=== PATIENT | female | born 1960 | race Caucasian/White ===

== ENCOUNTER 2017-05-20 06:05 | Inpatient (IN) | payer MEDICAID ==
[2017-05-20] MEDS ORDERED: ASPIRIN 81 MG CHEW PO STA (06:22)
[2017-05-20] MEDS ORDERED: NITROGLYCERIN SL TABS 0.4 MG TAB SUBLINGUAL STA ×3 (06:22)
--- NOTE | 2017-05-20 06:25 | ED ---
General Adult HPI - General Source: patient, RN notes reviewed Mode of arrival: ambulatory Limitations: no limitations <Darrell Jeong - Last Filed: 05/20/17 07:00> <Liam Lisa - Last Filed: 05/20/17 10:23> - General Chief complaint: Chest Pain Stated complaint: Chest Pain Time Seen by Provider: 05/20/17 06:18 - History of Present Illness Initial comments: Patient is a pleasant 57-year-old female presenting to the emergency Department with complaints of chest discomfort. Onset was around midnight. Discomfort feels like pressure. Discomfort is lower chest/upper abdomen with radiation to the upper back. Patient did have similar symptoms a few weeks ago however just lasted a few minutes then resolved. No dyspnea. Patient has had some nausea vomiting. No diaphoresis. Patient had a sister that of heart attack with similar symptoms. (Darrell Jeong) - Related Data Home Medications Medication Instructions Recorded Confirmed ALPRAZolam [Xanax] 0.25 mg PO DAILY PRN 12/07/15 05/20/17 Bumetanide [Bumex] 1 mg PO DAILY 12/07/15 05/20/17 Letrozole [Femara] 2.5 mg PO DAILY 12/07/15 05/20/17 Metoprolol Succinate (ER) [Toprol 100 mg PO HS 12/07/15 05/20/17 Xl] Zolpidem [Ambien] 10 mg PO HS PRN 08/24/16 05/20/17 Fexofenadine HCl [Jaye Allergy] 180 mg PO DAILY 05/20/17 05/20/17 Allergies Allergy/AdvReac Type Severity Reaction Status Date / Time celecoxib [From Celebrex] Allergy SEVERE Verified 05/20/17 08:11 HEADACHE codeine Allergy Nausea & Verified 05/20/17 08:11 Vomiting, HEADACHE Review of Systems ROS Other: All systems not noted in ROS Statement are negative. Constitutional: Denies: fever Eyes: Denies: eye pain ENT: Denies: ear pain Respiratory: Denies: cough, dyspnea Cardiovascular: Reports: chest pain Endocrine: Denies: fatigue Gastrointestinal: Reports: nausea, vomiting Genitourinary: Denies: dysuria Musculoskeletal: Reports: back pain Skin: Denies: rash Neurological: Denies: weakness <Darrell Jeong - Last Filed: 05/20/17 07:00> ROS Other: All systems not noted in ROS Statement are negative. <DangfatumajoaquínLiam Pattie - Last Filed: 05/20/17 10:23> ROS Statement: Those systems with pertinent positive or pertinent negative responses have been documented in the HPI. Past Medical History Past Medical History: Cancer, Hypertension, Osteoarthritis (OA) Additional Past Medical History / Comment(s): breast ca, HYPOGLYCEMIA , History of Any Multi-Drug Resistant Organisms: None Reported Past Surgical History: Breast Surgery, Orthopedic Surgery, Tonsillectomy Additional Past Surgical History / Comment(s): rt mastectomy, knee rt leg TOTAL KNEE, RIGHT KNEE ARTHROSCOPIC X8. BREAST BIOPSY, LEFT KNEE ARTHROTOMY Past Anesthesia/Blood Transfusion Reactions: No Reported Reaction Past Psychological History: Anxiety Smoking Status: Never smoker Past Alcohol Use History: None Reported Past Drug Use History: None Reported - Past Family History Mother Family Medical History: Cancer Additional Family Medical History / Comment(s): breast cancer at age 50 <Darrell Jeong - Last Filed: 05/20/17 07:00> General Exam Limitations: no limitations General appearance: alert, in no apparent distress Head exam: Present: atraumatic Eye exam: Present: normal appearance, PERRL ENT exam: Present: normal oropharynx Neck exam: Present: normal inspection Respiratory exam: Present: normal lung sounds bilaterally. Absent: chest wall tenderness Cardiovascular Exam: Present: regular rate, normal rhythm Expanded Peripheral pulses: 2+: Radial (R), Radial (L), Dorsalis Pedis (R), Dorsalis Pedis (L) GI/Abdominal exam: Present: soft, tenderness (Mild epigastric tenderness), normal bowel sounds. Absent: distended, guarding, rebound, rigid, pulsatile mass Extremities exam: Present: normal inspection. Absent: pedal edema, calf tenderness Back exam: Present: tenderness (Patient states mild discomfort to the upper thoracic region) Neurological exam: Present: alert Psychiatric exam: Present: normal affect, normal mood Skin exam: Present: normal color <Darrell Jeong - Last Filed: 05/20/17 07:00> General appearance: alert, in no apparent distress Head exam: Present: atraumatic, normocephalic, normal inspection Eye exam: Present: normal appearance, PERRL, EOMI. Absent: scleral icterus, conjunctival injection, periorbital swelling ENT exam: Present: normal exam, mucous membranes moist Neck exam: Present: normal inspection. Absent: tenderness, meningismus, lymphadenopathy Respiratory exam: Present: normal lung sounds bilaterally. Absent: respiratory distress, wheezes, rales, rhonchi, stridor Cardiovascular Exam: Present: regular rate, normal rhythm, normal heart sounds. Absent: systolic murmur, diastolic murmur, rubs, gallop, clicks GI/Abdominal exam: Present: soft, normal bowel sounds. Absent: distended, tenderness, guarding, rebound, rigid Extremities exam: Present: normal inspection, full ROM, normal capillary refill. Absent: tenderness, pedal edema, joint swelling, calf tenderness Back exam: Present: normal inspection Neurological exam: Present: alert, oriented X3, CN II-XII intact Psychiatric exam: Present: normal affect, normal mood Skin exam: Present: warm, dry, intact, normal color. Absent: rash <Liam Lisa - Last Filed: 05/20/17 10:23> Course <Darrell Jeong - Last Filed: 05/20/17 07:00> <Liam Lisa - Last Filed: 05/20/17 10:23> Vital Signs 05/20/17 05/20/17 05/20/17 06:08 06:28 07:24 Temperature 97.1 F L Pulse Rate 78 74 67 Respiratory 18 18 18 Rate Blood Pressure 146/70 146/88 171/79 O2 Sat by Pulse 98 99 99 Oximetry 05/20/17 09:16 Temperature Pulse Rate 81 Respiratory 18 Rate Blood Pressure 165/77 O2 Sat by Pulse 99 Oximetry - Reevaluation(s) Reevaluation #1: 05/20/17 07:00 EKG #2 shows normal sinus rhythm 67. NV 194. QRS 96. QT 414. QTC 437. Normal axis. Normal QRS. No acute ST change. (Darrell Jeong) Reevaluation #2: 05/20/17 08:11 Patient with persistent nausea (Liam Lisa) Reevaluation #3: 05/20/17 10:23 Positive right upper quadrant pain (Liam Lisa) EKG Findings - EKG Comments: EKG Findings:: Sinus rhythm at 69. QRS 88. QT 470. QTc 503. Normal axis. Normal QRS. No acute ST change. Artifact is present. <Darrell Jeong - Last Filed: 05/20/17 07:00> Medical Decision Making <Darrell Jeong - Last Filed: 05/20/17 07:00> - Lab Data Result diagrams: 05/20/17 06:10 05/20/17 06:10 - Radiology Data Radiology results: report reviewed (Chest x-ray is negative, ultrasound is pending positive for cholelithiasis, cholecystitis), image reviewed <Liam Lisa - Last Filed: 05/20/17 10:23> - Medical Decision Making Phys ed female here for evaluation of her quadrant pain, gallbladder disease, cholelithiasis likely cystitis. Patient moves having severe pain with now with pain control antibiotics and better. Patient will be admitted for surgical consultation regarding gallbladder (Liam Lisa) - Lab Data Lab Results 05/20/17 05/20/17 05/20/17 Range/Units 06:10 06:10 06:10 WBC 10.9 H (3.8-10.6) k/uL RBC 4.83 (3.80-5.40) m/uL Hgb 14.0 (11.4-16.0) gm/dL Hct 41.2 (34.0-46.0) % MCV 85.3 (80.0-100.0) fL MCH 28.9 (25.0-35.0) pg MCHC 33.9 (31.0-37.0) g/dL RDW 14.8 (11.5-15.5) % Plt Count 393 (150-450) k/uL Neutrophils % 76 % Lymphocytes % 17 % Monocytes % 3 % Eosinophils % 2 % Basophils % 1 % Neutrophils # 8.3 H (1.3-7.7) k/uL Lymphocytes # 1.8 (1.0-4.8) k/uL Monocytes # 0.3 (0-1.0) k/uL Eosinophils # 0.2 (0-0.7) k/uL Basophils # 0.1 (0-0.2) k/uL PT (9.0-12.0) sec INR (<1.2) APTT (22.0-30.0) sec D-Dimer (<0.60) mg/L FEU Sodium 140 (137-145) mmol/L Potassium 4.1 (3.5-5.1) mmol/L Chloride 99 (98-107) mmol/L Carbon Dioxide 27 (22-30) mmol/L Anion Gap 14 mmol/L BUN 13 (7-17) mg/dL Creatinine 0.60 (0.52-1.04) mg/dL Est GFR (MDRD) Af Amer >60 (>60 ml/min/1.73 sqM) Est GFR (MDRD) Non-Af >60 (>60 ml/min/1.73 sqM) Glucose 143 H (74-99) mg/dL Calcium 10.1 (8.4-10.2) mg/dL Magnesium 1.9 (1.6-2.3) mg/dL Total Bilirubin 0.8 (0.2-1.3) mg/dL AST 28 (14-36) U/L ALT 49 (9-52) U/L Alkaline Phosphatase 63 (38-126) U/L Total Creatine Kinase 43 (30-135) U/L CK-MB (CK-2) 0.5 (0.0-2.4) ng/mL CK-MB (CK-2) Rel Index 1.2 Troponin I <0.012 (0.000-0.034) ng/mL Total Protein 6.6 (6.3-8.2) g/dL Albumin 4.2 (3.5-5.0) g/dL Lipase (23-300) U/L 05/20/17 05/20/17 Range/Units 06:10 06:10 WBC (3.8-10.6) k/uL RBC (3.80-5.40) m/uL Hgb (11.4-16.0) gm/dL Hct (34.0-46.0) % MCV (80.0-100.0) fL MCH (25.0-35.0) pg MCHC (31.0-37.0) g/dL RDW (11.5-15.5) % Plt Count (150-450) k/uL Neutrophils % % Lymphocytes % % Monocytes % % Eosinophils % % Basophils % % Neutrophils # (1.3-7.7) k/uL Lymphocytes # (1.0-4.8) k/uL Monocytes # (0-1.0) k/uL Eosinophils # (0-0.7) k/uL Basophils # (0-0.2) k/uL PT 10.0 (9.0-12.0) sec INR 1.0 (<1.2) APTT 23.6 (22.0-30.0) sec D-Dimer 0.31 (<0.60) mg/L FEU Sodium (137-145) mmol/L Potassium (3.5-5.1) mmol/L Chloride (98-107) mmol/L Carbon Dioxide (22-30) mmol/L Anion Gap mmol/L BUN (7-17) mg/dL Creatinine (0.52-1.04) mg/dL Est GFR (MDRD) Af Amer (>60 ml/min/1.73 sqM) Est GFR (MDRD) Non-Af (>60 ml/min/1.73 sqM) Glucose (74-99) mg/dL Calcium (8.4-10.2) mg/dL Magnesium (1.6-2.3) mg/dL Total Bilirubin (0.2-1.3) mg/dL AST (14-36) U/L ALT (9-52) U/L Alkaline Phosphatase (38-126) U/L Total Creatine Kinase (30-135) U/L CK-MB (CK-2) (0.0-2.4) ng/mL CK-MB (CK-2) Rel Index Troponin I (0.000-0.034) ng/mL Total Protein (6.3-8.2) g/dL Albumin (3.5-5.0) g/dL Lipase 137 (23-300) U/L Disposition <Darrell Jeong - Last Filed: 05/20/17 07:00> <Liam Lisa - Last Filed: 05/20/17 10:23> Clinical Impression: Acute cholecystitis Disposition: ADMITTED IP TO THIS HOSP Condition: Fair Referrals: Barney Cisse MD [Primary Care Provider] - 1-2 days
[2017-05-20] MEDS ORDERED: ONDANSETRON 4 MG/2 ML VIAL IVP STA ×2 (06:32→07:37)
[2017-05-20 06:47] LABS: Basophils # (A) 0.1 k/uL (0-0.2); Basophils % (A) 1 %; CH 29.4; CHCM 34.6; Eosinophils # (A) 0.2 k/uL (0-0.7); Eosinophils % (A) 2 %; HCT 41.2 % (34.0-46.0); HDW 2.77; Luc # (Auto) 0.18; Luc % (Auto) 2; Lymphocytes # (A) 1.8 k/uL (1.0-4.8); Lymphocytes % (A) 17 %; MCH 28.9 pg (25.0-35.0); MCHC 33.9 g/dL (31.0-37.0); MCV 85.3 fL (80.0-100.0); Mean Platelet Volume 7.5; Monocytes # (A) 0.3 k/uL (0-1.0); Monocytes % (A) 3 %; Neutrophils # (A) 8.3 k/uL (1.3-7.7); Neutrophils % (A) 76 %; RBC 4.83 m/uL (3.80-5.40); RDW 14.8 % (11.5-15.5); WBC 10.9 k/uL (3.8-10.6); WBC (Perox) 10.75
[2017-05-20 07:00] LABS: ALT 49 U/L (9-52); AST 28 U/L (14-36); Alkaline Phosphatase 63 U/L (38-126); Anion Gap 14 mmol/L; Blood Urea Nitrogen 13 mg/dL (7-17); Calcium 10.1 mg/dL (8.4-10.2); Carbon Dioxide 27 mmol/L (22-30); Chloride 99 mmol/L (98-107); Glucose 143 mg/dL (74-99); Magnesium 1.9 mg/dL (1.6-2.3); Non-African American GFR(MDRD) >60 (>60 ml/min/1.73 sqM); Potassium 4.1 mmol/L (3.5-5.1); Sodium 140 mmol/L (137-145); Total Bilirubin 0.8 mg/dL (0.2-1.3); Total Protein 6.6 g/dL (6.3-8.2)
[2017-05-20 07:06] LABS: Partial Thromboplastin Time 23.6 sec (22.0-30.0)
--- NOTE | 2017-05-20 07:17 | XR ---
EXAM: XR Chest, 2 Views CLINICAL HISTORY: Reason: Chest Pain TECHNIQUE: Frontal and lateral views of the chest. COMPARISON: 08/09/16 FINDINGS: Lungs: Low lung volume accentuate pulmonary markings. Pleural space: Unremarkable. No pneumothorax. Heart: Unremarkable. No cardiomegaly. Mediastinum: Unremarkable. Bones/joints: Mild thoracic spondylosis Tubes, lines and devices: Overlying chest leads obscure portion of the chest. IMPRESSION: Low lung volumes limit evaluation. No dense consolidation or effusion
[2017-05-20 07:31] LABS: Creatine Kinase 43 U/L (30-135)
[2017-05-20] MEDS ORDERED: MORPHINE SULFATE 4 MG/ML SYRINGE IVP STA ×2 (07:37→10:08)
[2017-05-20] MEDS ORDERED: FAMOTIDINE 20 MG/2 ML VIAL IV STA (07:37)
[2017-05-20 07:43] LABS: Creatine Kinase MB 0.5 ng/mL (0.0-2.4); Troponin I <0.012 ng/mL (0.000-0.034)
--- NOTE | 2017-05-20 08:48 | US ---
EXAMINATION TYPE: US gallbladder DATE OF EXAM: 05/20/2017 COMPARISON: NONE CLINICAL HISTORY: Pain. EXAM MEASUREMENTS: Liver Length: 17.1 cm Gallbladder Wall: 0.3 cm CBD: 0.5 cm Right Kidney: 10.3 x 3.7 x 5.3 cm Large body habitus Pancreas: prominent duct Liver: Increased attenuation, decreased visualization of vessels suggestive of fatty infiltrate, tawnya e probable focal fatty sparing adjacent to gallbladder Gallbladder: cholelithiasis, possible stones in the neck Evidence for sonographic Royal's sign: CBD: wnl Right Kidney: wnl Limited views of the pancreas are normal. The pancreatic duct is within normal limits for size. The liver is upper limits of normal in size but attenuating and likely fatty infiltrated without foca l fatty sparing near the gallbladder fossa. There are gallstones within the gallbladder. The gallbladder wall measures 3 mm. The distal common he patic duct measures 5 mm. The right kidney is normal. The intrahepatic IVC is unremarkable. IMPRESSION: 1. CHOLELITHIASIS. 2. PROBABLE FATTY INFILTRATION OF THE LIVER.
[2017-05-20] MEDS ORDERED: AMPICILLIN-SULBACTAM 3 GM in SODIUM CHLORIDE 0.9% 100 ML IVPB STA (08:58)
[2017-05-20] MEDS ORDERED: SODIUM CHLORIDE 0.9% 1,000 ML IV ONE (10:21)
[2017-05-20] MEDS ORDERED: MORPHINE SULFATE 4 MG/ML SYRINGE IVP PRN (10:22)
[2017-05-20] MEDS ORDERED: ONDANSETRON 4 MG/2 ML VIAL IVP PRN (10:22)
--- NOTE | 2017-05-20 12:13 | P.GSHP ---
History of Present Illness H&P Date: 05/20/17 Chief Complaint: RIght upper quadrant pain Patient is a very pleasant 57-year-old female who presents with sudden onset of severe right upper quadrant pain which made her uncomfortable and she was not optimal any physician that she laid down. The some associated nausea. This pain started after having a large spaghetti meal with ice cream. She's not had any history of fever chills jaundice regular is. She presented today and has been given pain medication which is helped with the pain. Otherwise the pain itself is bandlike in the right upper quadrant radiating to the back and shoulder. There is some associated nausea and vomiting. No acholic stools. She's had one similar episode of pain approximately 3 weeks ago. But this pain is unrelenting and continuous and severe. - Constitutional Constitutional: Reports anorexia, Denies fatigue, Denies fever, Denies lethargy - EENT Eyes: denies blurred vision Ears, nose, mouth and throat: Denies headache, Denies sore throat - Cardiovascular Comment: Is able to walk to 3 flights of stairs without getting short of breath no history of recent heart issues she is hypertensive Cardiovascular: Reports claudication, Denies decreased exercise tolerance, Denies dyspnea on exertion - Respiratory Respiratory: Denies cough, Denies dyspnea - Gastrointestinal Gastrointestinal: Reports as per HPI - Genitourinary (Female) Genitourinary: Denies dysuria, Denies hematuria - Musculoskeletal Musculoskeletal: Denies myalgias - Integumentary Integumentary: Denies pruritus, Denies rash - Neurological Neurological: Denies numbness, Denies weakness - Psychiatric Psychiatric: Denies anxiety, Denies depression - Endocrine Endocrine: Denies fatigue, Denies weight change - Hematologic/Lymphatic Hematologic/Lymphatic: Denies easy bleeding - Allergic/Immunologic Comment: ALLERGIC to shellfish Past Medical History Past Medical History: Cancer, Hypertension, Osteoarthritis (OA) Additional Past Medical History / Comment(s): breast ca, HYPOGLYCEMIA , History of Any Multi-Drug Resistant Organisms: None Reported Past Surgical History: Breast Surgery, Orthopedic Surgery, Tonsillectomy Additional Past Surgical History / Comment(s): rt mastectomy, knee rt leg TOTAL KNEE, RIGHT KNEE ARTHROSCOPIC X8. BREAST BIOPSY, LEFT KNEE ARTHROTOMY Past Anesthesia/Blood Transfusion Reactions: No Reported Reaction Additional Past Anesthesia/Blood Transfusion Reaction / Comment(s): NO BLOOD TRANSFUSIONS Past Psychological History: Anxiety Smoking Status: Never smoker Past Alcohol Use History: None Reported Past Drug Use History: None Reported - Past Family History Mother Family Medical History: Cancer Additional Family Medical History / Comment(s): breast cancer at age 50 Father Family Medical History: Myocardial Infarction (MS) Medications and Allergies Home Medications Medication Instructions Recorded Confirmed Type ALPRAZolam [Xanax] 0.25 mg PO DAILY PRN 12/07/15 05/20/17 History Bumetanide [Bumex] 1 mg PO DAILY 12/07/15 05/20/17 History Letrozole [Femara] 2.5 mg PO DAILY 12/07/15 05/20/17 History Metoprolol Succinate (ER) [Toprol 100 mg PO HS 12/07/15 05/20/17 History Xl] Zolpidem [Ambien] 10 mg PO HS PRN 08/24/16 05/20/17 History Fexofenadine HCl [Jaye Allergy] 180 mg PO DAILY 05/20/17 05/20/17 History Allergies Allergy/AdvReac Type Severity Reaction Status Date / Time celecoxib [From Celebrex] Allergy SEVERE Verified 05/20/17 08:11 HEADACHE codeine Allergy Nausea & Verified 05/20/17 08:11 Vomiting, HEADACHE Surgical - Exam Vital Signs Temp Pulse Resp BP Pulse Ox 97.1 F L 78 18 146/70 98 05/20/17 06:08 05/20/17 06:08 05/20/17 06:08 05/20/17 06:08 05/20/17 06:08 - General well developed, well nourished, no distress - Eyes PERRL, normal ocular movement, no pale, no icteric, no deviation - ENT normal pinna, normal nares - Respiratory normal expansion, normal respiratory effort - Cardiovascular Rhythm: regular - Abdomen Patient tender in the right upper quadrant she is not guarding at this time there is no rebound organomegaly. - Integumentary no rash, no growths - Neurologic normal coordination, normal sensation - Musculoskeletal normal gait Results - Labs 05/20/17 06:10 05/20/17 06:10 Abnormal Lab Results - Last 24 Hours (Table) 05/20/17 05/20/17 Range/Units 06:10 06:10 WBC 10.9 H (3.8-10.6) k/uL Neutrophils # 8.3 H (1.3-7.7) k/uL Glucose 143 H (74-99) mg/dL Diabetes panel 05/20/17 Range/Units 06:10 Sodium 140 (137-145) mmol/L Potassium 4.1 (3.5-5.1) mmol/L Chloride 99 (98-107) mmol/L Carbon Dioxide 27 (22-30) mmol/L BUN 13 (7-17) mg/dL Creatinine 0.60 (0.52-1.04) mg/dL Glucose 143 H (74-99) mg/dL Calcium 10.1 (8.4-10.2) mg/dL AST 28 (14-36) U/L ALT 49 (9-52) U/L Alkaline Phosphatase 63 (38-126) U/L Total Protein 6.6 (6.3-8.2) g/dL Albumin 4.2 (3.5-5.0) g/dL Calcium panel 05/20/17 Range/Units 06:10 Calcium 10.1 (8.4-10.2) mg/dL Albumin 4.2 (3.5-5.0) g/dL Pituitary panel 05/20/17 Range/Units 06:10 Sodium 140 (137-145) mmol/L Potassium 4.1 (3.5-5.1) mmol/L Chloride 99 (98-107) mmol/L Carbon Dioxide 27 (22-30) mmol/L BUN 13 (7-17) mg/dL Creatinine 0.60 (0.52-1.04) mg/dL Glucose 143 H (74-99) mg/dL Calcium 10.1 (8.4-10.2) mg/dL Adrenal panel 05/20/17 Range/Units 06:10 Sodium 140 (137-145) mmol/L Potassium 4.1 (3.5-5.1) mmol/L Chloride 99 (98-107) mmol/L Carbon Dioxide 27 (22-30) mmol/L BUN 13 (7-17) mg/dL Creatinine 0.60 (0.52-1.04) mg/dL Glucose 143 H (74-99) mg/dL Calcium 10.1 (8.4-10.2) mg/dL Total Bilirubin 0.8 (0.2-1.3) mg/dL AST 28 (14-36) U/L ALT 49 (9-52) U/L Alkaline Phosphatase 63 (38-126) U/L Total Protein 6.6 (6.3-8.2) g/dL Albumin 4.2 (3.5-5.0) g/dL - Imaging Additional studies: Plan was reviewed and shows cholelithiasis. Assessment and Plan (1) Acute cholecystitis Status: Acute Plan: Patient is a hypertensive obese 57-year-old lady who presents with right upper quadrant pain due to cholelithiasis. Her history is consistent with acute cholecystitis. I recommended laparoscopic cholecystectomy risks and benefits of the procedure were discussed and she understands and is willing to proceed.
[2017-05-20] MEDS ORDERED: LIDOCAINE 1% INJ 10MG/ML (20 ML MDV) ONE ×2 (13:59→17:02)
[2017-05-20] MEDS ORDERED: NEOSTIGMINE 1 MG/ML 10 ML VIAL ONE ×2 (13:59→17:02)
[2017-05-20] MEDS ORDERED: SUCCINYLCHOLINE CHLORIDE 100 MG/5 ML SYR IV ONE ×2 (13:59→17:02)
[2017-05-20] MEDS ORDERED: PROPOFOL 10 MG/ML 20 ML VIAL IV ONE ×2 (13:59→17:02)
[2017-05-20] MEDS ORDERED: HYDROmorphone (PF) 1 MG/ML ONE (13:59)
[2017-05-20] MEDS ORDERED: ROCURONIUM BROMIDE 10 MG/ML 10 ML VIAL IV ONE ×2 (13:59→17:02)
[2017-05-20] MEDS ORDERED: GLYCOPYRROLATE 0.2 MG/ML 2 ML VIAL ONE ×2 (13:59→17:02)
[2017-05-20] MEDS ORDERED: fentaNYL (PF) 50 MCG/ML 2 ML AMP ONE ×2 (13:59→17:02)
[2017-05-20] MEDS ORDERED: MIDAZOLAM 2 MG/2 ML VIAL ONE ×2 (13:59→17:02)
[2017-05-20] MEDS ORDERED: IV FLUID CONTINUATION 1,000 ML IV ONE ×2 (14:28)
[2017-05-20] MEDS ORDERED: ONDANSETRON 4 MG/2 ML VIAL IVP ONE (14:34)
[2017-05-20] MEDS ORDERED: DEXAMETHASONE SOD PHOS (MDV) 100 MG/10 ML VIAL IVP ONE (14:35)
[2017-05-20] MEDS ORDERED: HEPARIN SODIUM,PORCINE 5,000 UNIT/ML 1 ML VIAL SQ ONE (14:54)
[2017-05-20] MEDS: AMPICILLIN-SULBACTAM 3 GM in SODIUM CHLORIDE 0.9% 100 ML IVPB SCH ×2 (17:20→23:54)
[2017-05-20] MEDS ORDERED: LIDOCAINE 0.5%-EPI 1:200,000 50 ML VIAL SQ ONE (17:32)
[2017-05-20] MEDS: LACTATED RINGERS 1,000 ML IV ONE ×2 (18:17→23:54)
--- NOTE | 2017-05-20 18:20 | P.OP ---
Date of Procedure: 05/20/17 Preoperative Diagnosis: Acute cholecystitis Postoperative Diagnosis: Acute cholecystitis Procedure(s) Performed: laparoscopic cholecystectomy Implants: Anesthesia: ALEXYS Surgeon: Brittany Garcia Pathology: other Condition: stable Disposition: PACU Indications for Procedure: Operative Findings: Acutely inflamed gall bladder Description of Procedure: The patient is a 57-year-old female who presented with epigastric and upper abdominal pain which localized in the right upper quadrant was tender with guarding in the right upper quadrant elevated white count and an ultrasound suggested cholelithiasis. Clinical diagnosis of acute cholecystitis was made. The risks benefits and possible complications of the procedure were discussed in detail and informed consent was obtained. Patient was identified in the preop operating holding area questions were answered and she was taken back to the operating room where she was placed in the supine position. She was given general anesthesia with endotracheal intubation followed by the placement of an orogastric tube and a timeout was called the indication procedure ALLERGIES medications from her prophylaxis were all discussed. Abdomen is prepped and draped in the usual sterile surgical fashion supraumbilical region was infiltrated with quarter percent with local anesthesia and incision was made with 11 blade and Veress needle was introduced and abdomen was insufflated to 18 mmHg. Once that was done a 10 mm epigastric port and two 5 mm right upper quadrant ports were placed.the gallbladder was retracted cephalad and superiorly.The fundus was retracted so as to make the Calot's triangle more visible. There were inflammatory peritoneal adhesions and the gallbladder was distended. The adhesions were taken down with the help of blunt dissection and using some electrocautery, skeletonizing the cystic duct and the multiple branches of the cystic artery. Cystic duct was clipped proximally and distally followed by clipping of the branches of the cystic artery following which they were transected sharply with the help of the krysta. The gallbladder was then taken off the gallbladder fossa with the help of electrocautery and placed in an Endo Catch bag and removed through the 10 m port site after dilating the port site with a Katie. The port was replaced and the gallbladder fossa was inspected and hemostasis was secured with the help of electrocautery the abdomen was thoroughly irrigated and sucked dry. [place] were noted to be in the appropriate position at this time to take procedure was terminated. the 10 mm port was removed and the port site was closed with the help of a Chriss Nuñez using 0 Vicryl.The Gas was shut off and all the 5 mm ports were removed. The abdomen was thoroughly desufflated. The remaining local anesthesia was infiltrated into the incisions and the incisions were closed with the help of 4-0 Monocryl and dermabond. The patient was extubated and taken to recovery room in stable condition the orogastric tube was removed prior to extubation. There were no complications.
[2017-05-20] MEDS ORDERED: KETOROLAC 30 MG/ML 1 ML VIAL IVP ONE (18:35)
[2017-05-20] MEDS: HYDROcodone/APAP 5-325MG 1 EACH TAB PO PRN (21:33)
[2017-05-20] MEDS ORDERED: METOPROLOL SUCCINATE (ER) 100 MG TAB.ER.24H PO SCH (22:08)
[2017-05-20] MEDS ORDERED: ALPRAZolam 0.25 MG TAB PO PRN (22:10)
[2017-05-21 00:08] VITALS: PULSE 78
[2017-05-21] MEDS: HYDROcodone/APAP 5-325MG 1 EACH TAB PO PRN (07:49)
[2017-05-21] MEDS: AMPICILLIN-SULBACTAM 3 GM in SODIUM CHLORIDE 0.9% 100 ML IVPB SCH (08:02)
[2017-05-21 08:40] VITALS: BP 126/83; RESP 19; TEMP 98
[2017-05-21] MEDS ORDERED: ENOXAPARIN 40 MG/0.4 ML SYRINGE SQ SCH (09:00)
[2017-05-21] MEDS ORDERED: LETROZOLE 2.5 MG TAB PO SCH (09:00)
[2017-05-21] MEDS ORDERED: BUMETANIDE 1 MG TAB PO SCH (09:00)
--- NOTE | 2017-05-21 11:15 | P.DS ---
Providers Date of admission: 05/20/17 10:21 Expected date of discharge: 05/21/17 Attending physician: Barney Cisse Consults: 05/20/17 10:21 Consult Physician Routine Consulting Provider: Brittany Garcia Consult Reason/Comments: fern Do you want consulting provider notified?: Yes Primary care physician: Barney Cisse - Discharge Diagnosis(es) (1) Acute cholecystitis Current Visit: Yes Status: Acute Hospital Course: Patient underwent right upper quadrant mid middle of chest pain which was worked up to be acute cholecystitis. Patient underwent a laparoscopic cholecystectomy which was uneventful. Postoperative she is been doing well ablating well without any pain no fever no chills. She's been discharged home today to follow up in 4 days. Restrictions are been discussed. Pertinent Studies: Ultrasound of abdomen Procedures: Laparoscopic cholecystectomy Patient Condition at Discharge: Fair Plan - Discharge Summary New Discharge Prescriptions: New HYDROcodone/APAP 5-325MG [[place] 5-325] 1 tab PO Q4HR PRN #15 tab PRN Reason: Pain Magnesium Hydroxide [Milk of Magnesia] 10 ml PO Q24H PRN #600 ml PRN Reason: Constipation No Action Letrozole [Femara] 2.5 mg PO DAILY Bumetanide [Bumex] 1 mg PO DAILY ALPRAZolam [Xanax] 0.25 mg PO DAILY PRN PRN Reason: Anxiety Metoprolol Succinate (ER) [Toprol Xl] 100 mg PO HS Zolpidem [Ambien] 10 mg PO HS PRN PRN Reason: SLEEP Fexofenadine HCl [Jaye Allergy] 180 mg PO DAILY Discharge Medication List ALPRAZolam [Xanax] 0.25 mg PO DAILY PRN 12/07/15 [History] Bumetanide [Bumex] 1 mg PO DAILY 12/07/15 [History] Letrozole [Femara] 2.5 mg PO DAILY 12/07/15 [History] Metoprolol Succinate (ER) [Toprol Xl] 100 mg PO HS 12/07/15 [History] Zolpidem [Ambien] 10 mg PO HS PRN 08/24/16 [History] Fexofenadine HCl [Jaye Allergy] 180 mg PO DAILY 05/20/17 [History] HYDROcodone/APAP 5-325MG [[place] 5-325] 1 tab PO Q4HR PRN #15 tab 05/21/17 [Rx] Magnesium Hydroxide [Milk of Magnesia] 10 ml PO Q24H PRN #600 ml 05/21/17 [Rx] Follow up Appointment(s)/Referral(s): Barney Cisse MD [Primary Care Provider] - 1-2 days Brittany Garcia MD [STAFF PHYSICIAN] - 05/25/17 9:30 am Activity/Diet/Wound Care/Special Instructions: Regular diet AMbulate as tolerated Use incentive spirometer as directed No driving on pain medications or when having pain May shower in 24 hours No heavy liftin more than 20 lbs for 6 weeks Discharge Disposition: HOME SELF-CARE
--- NOTE | 2017-05-22 09:36 | HP ---
DATE OF ADMISSION: 05/21/17 HISTORY AND PHYSICAL EXAMINATION/DISCHARGE SUMMARY CHIEF COMPLAINT: Abdominal pain. HISTORY OF PRESENT ILLNESS: This 57-year-old woman with past medical history of multiple medical problems being followed by Dr. Cisse in the outpatient setting , was admitted with epigastric and upper abdominal pain. The patient underwent laparoscopic cholecystectomy for acute cholecystitis by Dr. Garcia. The patient being closely monitored. There is no history of fever, rigors or chills. No history of headache, loss of consciousness or seizures. Occasional cough is reported. Past medical history of hypertension, DJD, history of breast cancer, breast surgery. Medications prior to admission are: Home medications are reviewed and include : 1. Jaye 180 mg po daily. 2. Ambien 10 mg prn. 3. Toprol XL 100 mg q.h.s. 4. Femara 2.5 daily. 5. Bumex 1 mg daily. 6. Xanax prn 7. Milk of magnesia. ALLERGIES: CELEBREX. CODEINE. FAMILY HISTORY: History of breast cancer in the family. SOCIAL HISTORY: No history of smoking. Occasional alcohol intake. REVIEW OF SYSTEMS: HEENT: No diminished vision. No diminished hearing. Cardiovascular system: No angina or palpitations. Respiratory: No cough, hemoptysis. GI: As mentioned earlier. : No dysuria. Nervous system: No numbness, weakness. Allergy/Immunology: No asthma or hayfever. Musculoskeletal : As mentioned earlier. Hematology/oncology: No history of anemia. Endocrine. No history of diabetes mellitus or hypothyroidism. Constitutional: As mentioned earlier. Dermatology: Negative. Rheumatology: Negative. Psychiatry: As mentioned earlier. PHYSICAL EXAMINATION: The patient is alert and oriented times three. Pulse 78. Blood pressure 138/77. Respiratory rate 18, temperature 97.4 degrees. Pulse ox 97% on 2 L. HEENT: Conjunctivae normal. NECK: No JVD. Cardiovascular: S1, S2 muffled. Respiratory: Breath sounds diminished at the bases. No rhonchi and no crackles. Abdomen is soft. Status post surgery. No mass palpable. No guarding. No rigidity. No mass palpable. No guarding. No rigidity. Legs: No edema. No swelling. Nervous system: Higher functions as mentioned earlier. Moves all four limbs. No focal deficits. Lymphatics: No lymph nodes palpable in the neck, axillae or groin. SKIN: No ulcer, rash or bleeding. LABS: WBC 10.9. ASSESSMENT: 1. Acute cholecystitis status post laparoscopic cholecystectomy. 2. Hypertension. 3. History of degenerative joint disease. 4. History of breast cancer. RECOMMENDATIONS AND DISCUSSION: In this 57 -year-old woman who presented after surgery, at this time, the patient improved significantly. At this time, I recommend continue incentive spirometry, the patient is stable. Resume the home medications. Follow-up with Dr. Cisse in the outpatient setting. DISCHARGE ADVICE AND MEDICATIONS: 1. Xanax 0.125 mg daily prn. 2. Bumex 1 mg po daily. 3. Jaye 180 mg po daily. 4. Forgan 5 mg q4h prn. 5. Femara 2.5 mg po daily. 6. Milk of Magnesia prn. 7. Metoprolol 100 mg q.h.s. 8. Ambien 10 mg q.h.s. prn MTDD
== END 2017-05-21 13:42 | disposition home or self-care (01) | DRG 419 ==
LOC: EC 06:05 → 6PED 10:21
PROVIDERS: ADMIT Family Medicine; ATTEND Family Medicine
PROC: 0FT44ZZ Resection of Gallbladder, Percutaneous Endoscopic Approach (ICD-10-PCS; principal; 2017-05-20 10:45)
DX: K80.00 Calculus of gallbladder with acute cholecystitis without obstruction (principal); I10 Essential (primary) hypertension; N73.6 Female pelvic peritoneal adhesions (postinfective); D72.829 Elevated white blood cell count, unspecified; E66.9 Obesity, unspecified; R05 Cough; M19.90 Unspecified osteoarthritis, unspecified site; F41.9 Anxiety disorder, unspecified; Z85.3 Personal history of malignant neoplasm of breast; Z90.11 Acquired absence of right breast and nipple; Z96.651 Presence of right artificial knee joint; Z86.39 Personal history of other endocrine, nutritional and metabolic disease; Z82.49 Family history of ischemic heart disease and other diseases of the circulatory system; Z80.3 Family history of malignant neoplasm of breast; Z88.6 Allergy status to analgesic agent; Z88.5 Allergy status to narcotic agent; Z79.811 Long term (current) use of aromatase inhibitors; Z79.899 Other long term (current) drug therapy
CPT/HCPCS: 36415; 71020; 76705; 80053; 82550; 82553; 83690; 83735; 84484; 85025; 85379; 85610; 85730; 88304; 93005; 96365; 96375; 96376; 99285

== ENCOUNTER 2017-12-22 22:08 | Emergency (ER) | payer MEDICAID ==
[2017-12-22 22:14] VITALS: BP 185/92; PULSE 99; RESP 18; TEMP 98
[2017-12-22] MEDS ORDERED: DIPH,PERTUS(ACELL)TETVAC-LF 0.5 ML VIAL IM ONE (22:28)
[2017-12-22] MEDS ORDERED: AMOXIC-POT CLAV 875MG STARTER 2 EACH TABLET PO STA (22:31)
--- NOTE | 2017-12-22 22:32 | ED ---
General Adult HPI - General Chief complaint: Animal Bite Stated complaint: Cat bite Time Seen by Provider: 12/22/17 22:17 Source: patient, RN notes reviewed Mode of arrival: ambulatory Limitations: no limitations - History of Present Illness Initial comments: Patient 57-year-old female who presents emergency room today with chief complaint of a cat Bite to the left palm. Patient states that her Was falling and she was trying to scratch his back and he turned around and bit her in the left. She has 2 puncture wounds to the hyperthenar eminence. She states she is unsure of her tetanus status. She denies any other complaints or symptoms. States she has full range of motion. Patient denies any recent fever, chills, shortness of breath, chest pain, abdominal pain, nausea or vomiting, headaches or visual changes, or any other complaints. - Related Data Home Medications Medication Instructions Recorded Confirmed ALPRAZolam [Xanax] 0.25 mg PO DAILY PRN 12/07/15 05/20/17 Bumetanide [Bumex] 1 mg PO DAILY 12/07/15 05/20/17 Letrozole [Femara] 2.5 mg PO DAILY 12/07/15 05/20/17 Metoprolol Succinate (ER) [Toprol 100 mg PO HS 12/07/15 05/20/17 Xl] Zolpidem [Ambien] 10 mg PO HS PRN 08/24/16 05/20/17 Fexofenadine HCl [Jaye Allergy] 180 mg PO DAILY 05/20/17 05/20/17 Previous Rx's Medication Instructions Recorded HYDROcodone/APAP 5-325MG [[place] 1 tab PO Q4HR PRN #15 tab 05/21/17 5-325] Magnesium Hydroxide [Milk of 10 ml PO Q24H PRN #600 ml 05/21/17 Magnesia] Amoxicillin/Potassium Clav 1 each PO Q12HR #20 tab 12/22/17 [Augmentin 875-125 Tablet] Allergies Allergy/AdvReac Type Severity Reaction Status Date / Time celecoxib [From Celebrex] Allergy SEVERE Verified 12/22/17 22:14 HEADACHE codeine Allergy Nausea & Verified 12/22/17 22:14 Vomiting, HEADACHE Review of Systems ROS Statement: Those systems with pertinent positive or pertinent negative responses have been documented in the HPI. ROS Other: All systems not noted in ROS Statement are negative. Past Medical History Past Medical History: Cancer, Hypertension, Osteoarthritis (OA) Additional Past Medical History / Comment(s): breast ca, HYPOGLYCEMIA , History of Any Multi-Drug Resistant Organisms: None Reported Past Surgical History: Breast Surgery, Cholecystectomy, Orthopedic Surgery, Tonsillectomy Additional Past Surgical History / Comment(s): rt mastectomy, knee rt leg TOTAL KNEE, RIGHT KNEE ARTHROSCOPIC X8. BREAST BIOPSY, LEFT KNEE ARTHROTOMY Past Anesthesia/Blood Transfusion Reactions: No Reported Reaction Additional Past Anesthesia/Blood Transfusion Reaction / Comment(s): NO BLOOD TRANSFUSIONS Past Psychological History: Anxiety Smoking Status: Never smoker Past Alcohol Use History: None Reported Past Drug Use History: None Reported - Past Family History Mother Family Medical History: Cancer Additional Family Medical History / Comment(s): breast cancer at age 81 Father Family Medical History: Myocardial Infarction ([place]) General Exam - General Exam Comments Initial Comments: General: The patient is awake and alert, in no distress, and does not appear acutely ill. Neck: The neck is supple, there is no tenderness or JVD. Cardiovascular: There is a regular rate and rhythm. No murmur, rub or gallop is appreciated. Respiratory: Lungs are clear to auscultation, respirations are non-labored, breath sounds are equal. No wheezes, stridor, rales, or rhonchi. Musculoskeletal: Full range motion. Sensation intact pulses equal bilaterally 2 +. Strength is 5/5 in all directions. Neurological: A&O x 3. CN II-XII intact, There are no obvious motor or sensory deficits. Coordination appears grossly intact. Speech is normal. Skin: Patient does have laceration 2 to the thenar eminence of the left hand. Each measures approximately 1 cm. There is no active bleeding. Psychiatric: Normal mood and affect. Limitations: no limitations Course Vital Signs 12/22/17 22:11 Temperature 98.0 F Pulse Rate 99 Respiratory 18 Rate Blood Pressure 185/92 O2 Sat by Pulse 97 Oximetry Procedures - Procedures Initial comment: Wounds were irrigated with high pressure with saline at bedside. Patient tolerated well. Medical Decision Making - Medical Decision Making Patient's tetanus updated here in the emergency room. Her wound was irrigated. Patient started on antibiotics of Augmentin here in the ER. Advised continue antibiotics and watch for signs of infection. Advised return if any signs of infection or any other concern. Disposition Clinical Impression: Cat bite Disposition: HOME SELF-CARE Condition: Good Instructions: Animal Bite (ED) Additional Instructions: Please use antibiotics as prescribed. Please watch for signs of infection which may include increased pain, swelling, redness, fever or chills. Please return to emergency room for any other concerns or signs of infection. Prescriptions: Amoxicillin/Potassium Clav [Augmentin 875-125 Tablet] 1 each PO Q12HR #20 tab Referrals: Barney Cisse MD [Primary Care Provider] - 1-2 days Time of Disposition: 22:31
== END 2017-12-22 23:02 | disposition home or self-care (01) ==
LOC: EC 22:08
DX: S61.452A Open bite of left hand, initial encounter (principal); I10 Essential (primary) hypertension; Z85.3 Personal history of malignant neoplasm of breast; Z23 Encounter for immunization; Z79.899 Other long term (current) drug therapy; Z88.5 Allergy status to narcotic agent; Z88.6 Allergy status to analgesic agent; W55.01XA Bitten by cat, initial encounter
CPT/HCPCS: 90471; 90715; 99283